=== PATIENT | male | born 1980 | race Caucasian/White ===

== ENCOUNTER 2022-02-21 22:24 | Emergency (ER) | payer MEDICAID ==
[~2022-02-21] VITALS: Ht 165.1 cm; Wt 73.1 kg
[2022-02-21] MEDS ORDERED: IBUPROFEN 600MG TABLET PO STA (23:39)
[2022-02-22] MEDS ORDERED: IBUP-2029 MT (01:21)
[2022-02-22 01:35] VITALS: BP 131/70
== END 2022-02-22 01:42 | disposition home or self-care (01) ==
LOC: ER 22:24
DX: S09.8XXA Other specified injuries of head, initial encounter (principal); S16.1XXA Strain of muscle, fascia and tendon at neck level, initial encounter; S39.012A Strain of muscle, fascia and tendon of lower back, initial encounter; V43.52XA Car driver injured in collision with other type car in traffic accident, initial encounter; Y93.89 Activity, other specified; Y92.488 Other paved roadways as the place of occurrence of the external cause
CPT/HCPCS: 71045; 72040; 72100; 93005; 99285